=== PATIENT | female | born 1955 | race Caucasian/White ===

== ENCOUNTER 2018-09-13 12:19 | Emergency (ER) | payer MEDICAID ==
[~2018-09-13] VITALS: Ht 162.6 cm; Wt 77.1 kg
[2018-09-13 12:36] VITALS: BP 174/87; Ht 162.6 cm; Wt 77.1 kg
== END 2018-09-13 14:44 | disposition home or self-care (01) ==
LOC: ED 12:19
DX: M25.511 Pain in right shoulder (principal); I10 Essential (primary) hypertension

== ENCOUNTER 2020-06-26 10:18 | Emergency (ER) | payer MEDICAID ==
[~2020-06-26] VITALS: Ht 162.6 cm; Wt 79.4 kg
[2020-06-26 10:44] VITALS: Ht 162.6 cm; Wt 79.4 kg
[2020-06-26 11:56] LABS: BASOPHIL % 0.2 % (0.2-1.3); PLATELET COUNT 214 x10^3mcL (179-408); RED CELL DISTRIBUTION WIDTH 13.9 % (12.3-17.7)
[2020-06-26 12:08] LABS: CALCIUM 8.7 mg/dL (8.5-10.1); CARBON DIOXIDE 28.5 mmol/L (21-32); CHLORIDE SERUM 104 mmol/L (98-107); CREATININE SERUM 0.9 mg/dL (0.6-1.0); GFR1 > 60 mL/min; GLUCOSE SERUM 93 mg/dL (74-106); POTASSIUM SERUM 3.9 mmol/L (3.5-5.1); SODIUM SERUM 142 mmol/L (136-145)
[2020-06-26 12:12] LABS: ALBUMIN 4.2 g/dL (3.4-5.0); ALKALINE PHOSPHATASE 122 U/L (46-116); ALT/SGPT 35 U/L (14-59); AST/SGOT 24 U/L (15-37); BILIRUBIN TOTAL 1.05 mg/dL (0.20-1.00); TOTAL PROTEIN, SERUM 7.8 g/dL (6.4-8.2)
[2020-06-26] MEDS ORDERED: FLEET ENEMA135 ML PR (13:06)
[2020-06-26 13:30] VITALS: BP 161/78
== END 2020-06-26 13:30 | disposition home or self-care (01) ==
LOC: ED 10:18
PROVIDERS: Emergency Medicine
DX: K57.30 Diverticulosis of large intestine without perforation or abscess without bleeding (principal); K59.00 Constipation, unspecified; I10 Essential (primary) hypertension